=== PATIENT | male | born 1950 | race Caucasian/White ===

== ENCOUNTER → 2017-09-01 10:11 | Outpatient (CLI) | payer MEDICARE ==
[2010-01-29 07:08] VITALS: BMI 23.0
[~2017-09-01 10:11] MED LIST: BAYER CHEWABLE81 MG PO; CALAN SR180 MG PO; HYZAAR 100-12.51 TAB PO; PERCOCET 10/3251 TA1 PO
[2017-09-15 06:18] VITALS: BMI 26.5
== END | disposition home or self-care (01) ==
LOC: D.MRI 10:11
DX: M75.112 Incomplete rotator cuff tear or rupture of left shoulder, not specified as traumatic (principal)

== ENCOUNTER 2017-09-15 05:30 | Day surgery (SDC) | payer MEDICARE ==
[2017-09-12 10:19] LABS: CALC OSMOLALITY 273 mosm/kg (275-300); CARBON DIOXIDE 26.6 mmol/L (21.0-32.0); CHLORIDE - SERUM 101 mmol/L (98-107); CREATININE - SERUM 0.8 mg/dL (0.6-1.3); GLUCOSE 120 mg/dL (74-106); POTASSIUM - SERUM 3.9 mmol/L (3.5-5.1); SODIUM 137 mmol/L (136-145); UREA NITROGEN 10 mg/dL (7-18); eGFR NON AFRICAN AMERICAN > 90 mL/min (90-120)
[2017-09-12 10:25] LABS: HEMATOCRIT 48.3 % (42.0-54.0); HEMOGLOBIN 17.9 g/dL (13.5-17.5); MCH 36.2 pg (26.0-34.0); MCHC 37.1 g/dL (31.0-37.0); MCV 97.8 fL (80.0-100.0); MEAN PLATELET VOLUME 9.1 fL (7.4-10.4); RBC 4.94 10x6/uL (4.20-6.10); RDW 12.9 % (11.5-14.5); WBC 4.8 10x3/uL (4.8-10.8)
[~2017-09-15] VITALS: Ht 180.3 cm; Wt 86.2 kg
--- NOTE | ~2017-09-15 | OP ---
PATIENT NAME: SAMIR COLEY MEDICAL RECORD: [id number] :54 LOCATION:[facility] ADMISSION DATE: SURGEON: RADHA KHAN MD DATE OF OPERATION: 09/15/2017 PREOPERATIVE DIAGNOSES: Impingement syndrome of the left shoulder and adhesive capsulitis. POSTOPERATIVE DIAGNOSES: Impingement syndrome of the left shoulder and adhesive capsulitis. PROCEDURES: 1. Arthroscopic distal clavicle excision - 1 cm. 2. Arthroscopic subacromial decompression with acromioplasty and bursectomy. 3. Manipulation under anesthesia. SURGEON: Radha Khan MD ANESTHESIA: General. INTRAOPERATIVE COMPLICATIONS: None. SUMMARY OF PATHOLOGIC FINDINGS: Consistent with the preoperative diagnosis, the patient had early adhesive capsulitis and biceps tendinitis as well as a measure of subacromial impingement as well as acromioclavicular arthritis. OPERATIVE SUMMARY IN DETAIL: After obtaining the appropriate preoperative orthopedic surgery consents as well as anesthetic consultation, evaluation, and clearance, the patient was brought to the operating room and placed on the operating table in supine position. After adequate general laryngeal mask was administered, the patient was placed in a right lateral decubitus position. All pressure points well padded to include down leg peroneal pad as well as axillary roll. The patient was held firmly to the operating table using the vacuum pack suction system. Please note that cerebral blood flow monitor was placed intact and used the entire case. The patient's left upper extremity and shoulder were then prepped and draped in routine sterile fashion. The arm was held in the Arthrex traction boom at 30 degrees of flexion, 30 degrees of abduction, and 10 pounds of traction laterally. Arthroscopy was established in the glenohumeral with a posterior portal. Anterior portal was established in the anterior safe interval. Diagnostic arthroscopy revealed the above findings. The patient did have some mild biceps tendinitis; however, no tears are complete rupture of the biceps tendon were noted. The bicipital labral complex was intact and the rotator cuff seen to be in good condition on the articular surface. Attention was then turned to the subacromial space. While in the subacromial space, [place] tissue ablation system was utilized to denude the undersurface of the acromion of all soft tissue elements and release the coracoacromial ligament. A 5-0 barrel bur was used to perform acromioplasty at the level of the acromioclavicular joint. Separate anterior arthroscopic portal was then utilized to continue to takedown the residual of the distal clavicle. Rotator cuff was inspected and there was no full thickness tearing at any portion of the rotator cuff. Having completed this, arthroscopy portals were closed with the OPERATIVE REPORT [id number] SAMIR COLEY routine interrupted fashion using 4-0 Prolene. Sterile dressings were applied. The patient was awakened and taken to the recovery room in stable condition. All final needle, sponge, and instrument counts were correct. TRANSINT:[id number] Voice Confirmation ID: [id number] DOCUMENT ID: [id number] BILL RUSSELL, RADHA FRANKLIN at 1147 CC: [id number] DICTATION DATE: 09/15/17 0834 CLINICAL CYTOPATHOLOGIST: 09/15/17 1159 [facility] 09/15/[address] [id number]
[~2017-09-15 05:30] MED LIST changes: -PERCOCET 10/3251 TA1 PO
[2017-09-15 06:18] VITALS: BP 150/88; Ht 180.3 cm; Wt 86.2 kg
[2017-09-15] MEDS ORDERED: PERCOCET 10/3251 TA1 PO (08:31)
== END 2017-09-15 10:40 | disposition home or self-care (01) ==
LOC: D.OPS 05:30 → D.PAN 12:45 → D.OPS 12:55
PROVIDERS: Anesthesiology
DX: M75.42 Impingement syndrome of left shoulder (principal); M75.02 Adhesive capsulitis of left shoulder; Z01.812 Encounter for preprocedural laboratory examination